=== PATIENT | male | born 1950 | race Caucasian/White ===

== ENCOUNTER → 2017-07-15 09:40 | Outpatient (CLI) | payer BC, SELFPAY ==
[2017-07-15 11:18] LABS: PSA,Total- Diagnostic < 0.01 ng/mL (0.0-4.0)
== END ==
PROVIDERS: Family Provider Family Medicine; PCP Family Medicine; Visit Provider Urology
DX: C61 Malignant neoplasm of prostate (principal)
CPT/HCPCS: 36415; 84153

== ENCOUNTER → 2017-11-10 12:38 | Outpatient (CLI) | payer BC, SELFPAY ==
--- NOTE | 2017-11-10 12:38 | DT_ITS ---
This patient was seen during an EMR downtime November 08, 2017 - November 15, 2017. This patient may have a combination of paper and electronic documentation or all paper documentation. All documentation is viewable within the e-chart portion of [employer] for each patient visit.
--- NOTE | 2017-11-10 12:50 | RAD_ITS ---
STUDY: X-RAY - THORACIC SPINE REASON FOR EXAM: Male, 67 years old. Chronic back pain. TECHNIQUE: 3 view(s) of the thoracic spine were obtained. COMPARISON: None. FINDINGS: Normal kyphosis of the thoracic spine. There is no substantial scoliosis. There is demineralization of the thoracic spine with endplate spondylosis. There is multilevel disc space narrowing of the thoracic spine. The soft tissue structures are unremarkable. RAD/Thoracic Spine 3 Views IMPRESSION: Degenerative changes. Electronically Signed: Beverly De La Torre MD at 21:42 EDT Tel , Service support ,
--- NOTE | 2017-11-10 12:50 | RAD_ITS ---
STUDY: X-RAY - LUMBAR SPINE REASON FOR EXAM: Male, 67 years old. Chronic back pain. TECHNIQUE: 3 view(s) of the lumbar spine were obtained. COMPARISON: September 26, 2013 FINDINGS: Normal lumbar lordosis. There is no substantial scoliosis. There is a normal alignment of the vertebrae. There are pedicle screws again noted at L5 and S1. The hardware is intact. There is multilevel endplate spondylosis of the lumbar vertebrae. There is multi-level degenerative disc disease with multi-level disc space narrowing. There is atherosclerotic calcification of the abdominal aorta without a demonstrated aneurysm. RAD/Lumbar Spine 2 or 3 Views IMPRESSION: Degenerative changes of the spine, as detailed above. Atherosclerosis. Electronically Signed: Beverly De La Torre MD at 18:29 EDT Tel , Service support ,
== END ==
PROVIDERS: Family Provider Family Medicine; PCP Family Medicine; Visit Provider Anesthesiology Pain Medicine
DX: M54.9 Dorsalgia, unspecified (principal); M79.606 Pain in leg, unspecified
CPT/HCPCS: 72072; 72100

== ENCOUNTER 2017-11-23 10:30 | Outpatient (RCR) | payer BC, SELFPAY ==
--- NOTE | 2017-11-19 10:29 | HP.PTEVAL_ITS ---
Patient's Visit Information MOHSEN SHEPPARD is a 67 year old M referred to Physical Therapy by Kayleen Freire with a diagnosis of LBP. Date of Evaluation: 11/19/17 Physical Therapist: Bill Stoddard PT, - Visit Plan Frequency: 2-3x /Week Duration: 4-6 Weeks Plan: B LE stretching and strengthening, core stab ex's, balance and proprio, nustep, and HEP - Subjective Subjective: Pt reports he has had LBP for greater than 30 years. Pt notes he was placed on disability due to his LBP. Pt had L/S surgery 5 years ago where they fused the R side of his LB. Pt reports his pain is constant in nature , but is worse sometimes more than others. Pt reports no T or N in LE's at this time, just a bunch of tightness. Pt reports occasional sleep diff secondary to pain. Pt reports he takes Tylenol and aleve to decrease his pain. Pt reports he has had multiple xrays which all revealed DDD. 3/10 at rest, 6/10 at worst ( driving to [place] and back) - Pain LBP Pain Intensity (Out of 10): 3 Pain Intensity Range: 6 - Objective eNeuro: B LE sensation is WNL to light touch. B pat tendon reflex= 2/3. MMT: B LE's are grossly 4/5 except R knee flex and ext 4-/5. L/S ROM: Pt is moderately limited with all ranges this date. Gait: Pt is able to ambulate greater than 1000' until feeling fatigued and needing to rest. - Goals Goal 1:: Decrease LBP x 25-50% to aid with IADL's Goal Time Frame: 4-6 Weeks Goal 2:: Increase B LE strength x 1 grade to aid with ambulation Goal Time Frame: 4-6 Weeks Goal 3:: I with HEP Goal Time Frame: 4-6 Weeks - Rehabilitation Potential Physical Therapy Diagnosis: Pt has LBP, limited ROM, and LE weakness secondary to deg changes in the L/S Rehabilitation Potential: Good - Anticipated Interventions Patient/Client Instruction: Educate patient on: Condition, Plan of Care For the Purpose of:: To improve self management Therapeutic Exercise to Include: Strength training, Endurance training, Balance training, Flexibilty training, Gait and locomotor training, Active ROM, Dynamic Lumbar Stabilization For the Purpose of:: To decrease pain, To increase ROM, To improve muscle performance and motor function Cryotherapy (ice pack, ice massage): Yes For the Purpose of:: To decrease pain Thank you for the opportunity to evaluate your patient. For Medicare and Medicare HMO plans, please review the plan of care and approve it. It will need to be FAXED BACK to us at [phone] for Medicare purposes. Please let me know if there are questions or concerns regarding this plan of care. Physician Signature: Date:
--- NOTE | 2018-02-16 07:48 | HP.PT.NRP ---
HP - Discharge Summary (1) - Patient Information MOHSEN SHEPPARD was seen in my office for initial evaluation on 11/19/17. The following Plan of Care was established for this patient: Initial Frequency: 2-3x /Week Initial Duration: 4-6 Weeks - Anticipated Interventions Patient/Client Instruction: Educate patient on: Condition, Plan of Care For the Purpose of:: To improve self management Therapeutic Exercise to Include: Strength training, Endurance training, Balance training, Flexibilty training, Gait and locomotor training, Active ROM, Dynamic Lumbar Stabilization For the Purpose of:: To decrease pain, To increase ROM, To improve muscle performance and motor function Cryotherapy (ice pack, ice massage): Yes For the Purpose of:: To decrease pain This patient was last seen in our office . Pertinent comments regarding their Physical therapy will appear below: Pt was treated for one f/u visit for his LBP on the date of 11/26/17. Pt cancelled his last 3 remaining appointments, and has not returned through todays date. Pt is therefore discontinued at this time. At this point I will be discontinuing this patient from physical therapy. I would be happy to see this patient again in the future if found appropriate by the physician. Thank you! Bill Stoddard, PT,
== END 2017-11-23 19:00 | disposition home or self-care (01) ==
LOC: PT 10:30
PROVIDERS: Family Provider Family Medicine; PCP Family Medicine; Visit Provider Anesthesiology Pain Medicine
DX: M54.9 Dorsalgia, unspecified (principal)
CPT/HCPCS: 97110; 97162

== ENCOUNTER → 2018-01-11 09:54 | Outpatient (CLI) | payer BC, SELFPAY ==
[2018-01-11 10:48] LABS: PSA,Total- Diagnostic < 0.01 ng/mL (0.0-4.0)
== END ==
PROVIDERS: Family Provider Family Medicine; PCP Family Medicine; Visit Provider Urology
DX: C61 Malignant neoplasm of prostate (principal)
CPT/HCPCS: 36415; 84153

== ENCOUNTER → 2018-07-20 09:20 | Outpatient (CLI) | payer BC, SELFPAY ==
[2018-07-20 10:46] LABS: PSA,Total- Diagnostic < 0.01 ng/mL (0.0-4.0)
== END ==
PROVIDERS: Family Provider Family Medicine; PCP Family Medicine; Referring Provider Urology; Visit Provider Urology
DX: C61 Malignant neoplasm of prostate (principal)
CPT/HCPCS: 36415; 84153

== ENCOUNTER 2018-09-22 17:53 | Emergency (ER) | payer BC, MEDICARE, SELFPAY ==
[2018-09-22 17:54] VITALS: BP 117/78; PULSE 72; RESP 16; TEMP 36.8; O2SAT 98; BMI 28.5
--- NOTE | 2018-09-22 18:08 | RAD_ITS ---
STUDY: X-RAY - LEFT ANKLE REASON FOR EXAM: Male, 68 years old. Left ankle pain TECHNIQUE: 3 view(s) of the ankle. COMPARISON: None. FINDINGS: Normal visualized distal tibia and fibula. Normal medial and lateral malleoli. Normal tibiotalar articulation and ankle mortise. Normal visualized talus and calcaneus. The visualized subtalar, talonavicular, calcaneocuboid and tarsal articulations are normal. Small well-corticated fragment at the lateral malleolus is likely from old injury. The soft tissue structures are unremarkable. RAD/Ankle min 3 Views IMPRESSION: No acute findings Electronically Signed: Chris Velazquez DO at 18:40 EDT Tel , Service support ,
--- NOTE | 2018-09-22 18:54 | ED.VISSUMM ---
- ER Visit Summary Date of Service: 09/22/18 Chief Complaint: [Pain and swelling to left ankle] History of Present Illness: The patient is a 68 M [presents to the emergency department with pain and swelling to his left ankle that started about an hour ago. Patient is not sure if he injured it in any way. Patient states that he was on a ladder today and cleaning out his gutters however the pain did not start until about 4 hours later. Patient denies any direct trauma. Denies any fevers.] Physical Examination: [Left ankle-patient does have a joint effusion noted. He is got some mild soft tissue swelling. Patient has diffuse tenderness about the ankle joint. There is no erythema or warmth. He is neurovascular intact distally. No pain at the proximal fibular head. No pain at the base of the fifth metatarsal.] Test Results: [X-rays left ankle were normal] Emergency Department Course and Treatment: [Patient given an air splint] Treatment Plan: [Patient will be given a prescription for naproxen and [place] for severe pain. Patient I suspect likely has a sprain although cannot rule out early inflammatory arthropathy such as gout.] Disposition: [Discharged home in stable condition. Patient advised to follow-up with primary care physician within next 5 to 7 days.] Impression: [Left ankle sprain] This note was generated with [employer] dictation software. It may contain incorrect words, spelling, and punctuation that were not noted in review of the chart prior to signing ED Disposition - Plan for ED Patient: Referrals: Peter Ambriz DO [Primary Care Provider] -
--- NOTE | 2018-09-22 18:56 | ED.DEP ---
ED Disposition - Plan for ED Patient: Instructions: ED Sprain Ankle W X Ray Prescriptions: Hydrocodone Bitart/Apap 5-325 [[place] 5MG-325MG] 1 tab PO Q4H PRN PRN 2 Days #10 tab PRN Reason: Pain Naproxen [Naprosyn] 500 mg PO BID PRN #20 tab Referrals: Peter Ambriz DO [Primary Care Provider] - 5-7 Days
[2018-09-22 19:09] VITALS: RESP 16
== END 2018-09-22 19:10 | disposition home or self-care (01) ==
PROVIDERS: Emergency Provider Emergency Medicine; Family Provider Family Medicine; PCP Family Medicine
DX: S93.402A Sprain of unspecified ligament of left ankle, initial encounter (principal); Z85.46 Personal history of malignant neoplasm of prostate; X58.XXXA Exposure to other specified factors, initial encounter; Y93.89 Activity, other specified; Y92.008 Other place in unspecified non-institutional (private) residence as the place of occurrence of the external cause; Y99.8 Other external cause status
CPT/HCPCS: 73610; 99283

== ENCOUNTER → 2018-10-05 | Outpatient (CLI) | payer BC, SELFPAY ==
[2018-10-05 10:09] VITALS: BMI 28.5
--- NOTE | 2018-10-05 10:52 | RAD_ITS ---
STUDY: X-RAY CHEST REASON FOR EXAM: Male, 68 years old. Left anterior pain, cough TECHNIQUE: Frontal and lateral views COMPARISON: October 26, 2016 FINDINGS: The lungs are expanded. There is a stable left pulmonary granuloma.. Normal size heart. Normal mediastinum and emely. Normal visualized pulmonary arteries. Normal visualized aortic arch and descending thoracic aorta. Normal visualized thoracic spine. Normal visualized ribs, clavicles, and shoulders. There is no demonstrated abnormality of the visualized soft tissue structures of the upper abdomen. RAD/Chest PA and Lateral IMPRESSION: Left pulmonary granuloma. No acute pulmonary pathology. Electronically Signed: Vance Connors DO at 23:49 EDT Tel [phone], Service support ,
--- NOTE | 2018-10-05 10:52 | RAD_ITS ---
HISTORY: PAIN IN LEFT ANTERIOR LATER RIBS. NO INJURY. HISTORY OF [facility] COMPARISON: 2 view chest 10/05/2018 FINDINGS: XR left ribs 4 views The left ribs are intact. No fracture or bony lesion. No pneumothorax or pleural fluid collection. Left basilar nodule which is more dense than the adjacent rib and this has been previously reported as a benign granuloma. RAD/Ribs Unil 2V No CXR IMPRESSION: Negative left ribs. No fracture or suspicious bony lesion. at 0605 Reported and signed by: Ezequiel Tobin MD Electronically Signed: Ezequiel Tobin, at 6:04 EDT Tel , Service support ,
[2018-10-05 14:33] LABS: ALB/GLOB Ratio 1.4 RATIO (0.9-2.4); AST(SGOT) 20 U/L (15-37); Alanine Aminotransfer ALT/SGPT 27 U/L (16-61); Albumin, Serum 4.5 g/dL (3.2-5.0); Alkaline Phosphatase 50 U/L (45-117); Anion Gap 5 (5-15); BUN 20 mg/dL (7-18); BUN/Creat Ratio 19.6 RATIO (10-20); Calcium,Total 8.6 mg/dL (8.5-10.1); Chloride 104 mmol/L (98-107); Cholesterol 165 mg/dL (200); Creatinine, Serum 1.02 mg/dL (0.70-1.30); EST Glomerular Filtration Rate 77 mL/min (>60); Est Glom Filt Rate - Afr Amer 93 mL/min (>60); Globulin 3.3 g/dL (2.2-4.2); Glucose 109 mg/dL (74-106); High Density Lipoprotein 39 mg/dL; Potassium 4.2 mmol/L (3.5-5.1); Protein, Total 7.8 g/dL (6.4-8.2); Sodium Level 137 mmol/L (136-145); Triglycerides 112 mg/dL; Very Low Density Lipoprotein 22 mg/dL (5-40)
[2018-10-07 12:52] LABS: PSA, Total <0.1 ng/mL (0.0-4.0)
== END | disposition home or self-care (01) ==
LOC: BIMLAB 10:33 → RAD 10:52
PROVIDERS: Family Provider Family Medicine; PCP Family Medicine; Referring Provider Family Medicine; Visit Provider Family Medicine
DX: E78.5 Hyperlipidemia, unspecified (principal); R07.9 Chest pain, unspecified; M89.8X9 Other specified disorders of bone, unspecified site; Z86.19 Personal history of other infectious and parasitic diseases; Z85.46 Personal history of malignant neoplasm of prostate
CPT/HCPCS: 36415; 71046; 71100; 80053; 80061; 82306; 84153

== ENCOUNTER → 2019-01-19 | Outpatient (CLI) | payer BC, SELFPAY ==
[2018-10-05 10:09] VITALS: BMI 28.5
[2019-01-19 16:01] LABS: PSA,Total- Diagnostic < 0.01 ng/mL (0.0-4.0)
== END | disposition home or self-care (01) ==
LOC: LAB 13:32
PROVIDERS: Family Provider Family Medicine; PCP Family Medicine; Referring Provider Urology; Visit Provider Urology
DX: C61 Malignant neoplasm of prostate (principal)
CPT/HCPCS: 36415; 84153

== ENCOUNTER → 2019-04-17 | Outpatient (CLI) | payer BC, SELFPAY ==
[2019-04-15 06:31] VITALS: BMI 28.5
--- NOTE | 2019-04-15 08:00 | LIP_PTH ---
PATIENT: MOHSEN SHEPPARD LOC: [facility] U#:[id number] AGE/SX: 69/M ROOM: RE04/17/[address]: Dr. Mohsen Mathis MD : 1950 BED: DIS: 04/17/2019 SPEC #: [id number] RECD: 04/17/19 07:41 STATUS: EDWARD ROSA #: [id number] ADILIA: 04/15/19 08:[address]: Moshen Mathis DEPT: SURGICAL PATHOLOGY RECD BY: Geovanni Choe ENTERED: 04/17/19 09:30 SP TYPE: LIPOMA OTHR DR: Dr. Peter Ambriz, DO Tissues: Soft tissues, NOS Procedures: Surgery Specimen Level III HEADER OPERATION: Excision left arm lipoma PRE-OP DIAGNOSIS: Left arm lipoma TISSUE SUBMITTED: Left arm tissue MICROSCOPIC DIAGNOSIS Left arm tissue, excision: Mature adipose tissue, consistent with lipoma with focal area of angiolipoma. SJ:gricel 04/18/19 MICROSCOPIC DESCRIPTION Slides are reviewed. GROSS DESCRIPTION Received in fixative is one container labeled with the patient's name and designated left arm lipoma. The specimen consists of an irregular piece of adipose tissue measuring 1.5 x 1.5 x 1 cm. The external surface is inked. Sections reveal yellow adipose cut surfaces without areas of hemorrhage, necrosis or cystic degeneration. The entire specimen is submitted in three cassettes. / ROGELIO:gricel 04/17/19 TC:1 CPT: 28500
== END | disposition home or self-care (01) ==
LOC: LABSPEC 09:00
PROVIDERS: Family Provider Family Medicine; PCP Family Medicine; Referring Provider Surgery; Visit Provider Surgery
DX: D17.22 Benign lipomatous neoplasm of skin and subcutaneous tissue of left arm (principal)
CPT/HCPCS: 88304

== ENCOUNTER → 2019-07-21 11:16 | Outpatient (CLI) | payer BC, SELFPAY ==
[2019-04-15 06:31] VITALS: BMI 28.5
[2019-07-21 12:44] LABS: PSA,Total- Diagnostic < 0.01 ng/mL (0.0-4.0)
== END ==
PROVIDERS: PCP Family Medicine; Referring Provider Urology; Visit Provider Urology
DX: C61 Malignant neoplasm of prostate (principal)
CPT/HCPCS: 36415; 84153

== ENCOUNTER → 2020-01-25 11:06 | Outpatient (CLI) | payer BC, SELFPAY ==
[2019-04-15 06:31] VITALS: BMI 28.5
[2020-01-25 13:10] LABS: PSA,Total- Diagnostic < 0.01 ng/mL (0.0-4.0)
== END ==
PROVIDERS: PCP Family Medicine; Referring Provider Urology; Visit Provider Urology
DX: C61 Malignant neoplasm of prostate (principal)
CPT/HCPCS: 36415; 84153

== ENCOUNTER → 2020-07-30 11:03 | Outpatient (CLI) | payer BC, SELFPAY ==
[2019-04-15 06:31] VITALS: BMI 28.5
[2020-07-30 12:19] LABS: PSA,Total- Diagnostic < 0.01 ng/mL (0.0-4.0)
== END ==
PROVIDERS: PCP Family Medicine; Referring Provider Urology; Visit Provider Urology
DX: C61 Malignant neoplasm of prostate (principal)
CPT/HCPCS: 36415; 84153

== ENCOUNTER → 2022-11-28 | Outpatient (CLI) | payer MEDICARE, SELFPAY ==
[2022-11-28 09:41] LABS: Hematocrit 47.1 % (40-54); Hemoglobin 15.9 g/dL (13.0-16.5); Mean Corp Hgb Conc 33.8 g/dL (32-36); Mean Corpuscular Hgb 30.8 pg (27.0-32.0); Mean Corpuscular Volume 91.3 fL (80-94); Mean Platelet Vol. 10.9 fl (6.2-12.0); Platelet Count 216 K/mm3 (150-450); RBC Distribution Width CV 13.2 % (11.6-14.6); RBC Distribution Width SD 44.8 fl (35.1-43.9); Red Blood Count 5.16 M/mm3 (4.6-6.2); White Blood Count 3.9 K/mm3 (4.4-11.0)
== END | disposition home or self-care (01) ==
LOC: MTLAB 09:09 → LAB 09:10
PROVIDERS: PCP Student in an Organized Health Care Education/Training Program; Referring Provider Student in an Organized Health Care Education/Training Program; Visit Provider Student in an Organized Health Care Education/Training Program
DX: D72.819 Decreased white blood cell count, unspecified (principal)
CPT/HCPCS: 36415; 85027

== ENCOUNTER → 2023-01-01 | Outpatient (CLI) | payer MEDICARE, SELFPAY ==
[2023-01-01 08:57] LABS: Hematocrit 47.8 % (40-54); Hemoglobin 15.8 g/dL (13.0-16.5); Mean Corp Hgb Conc 33.1 g/dL (32-36); Mean Corpuscular Volume 90.9 fL (80-94); Mean Platelet Vol. 10.7 fl (6.2-12.0); Platelet Count 218 K/mm3 (150-450); RBC Distribution Width CV 13.1 % (11.6-14.6); RBC Distribution Width SD 43.8 fl (35.1-43.9); Red Blood Count 5.26 M/mm3 (4.6-6.2)
[2023-01-01 09:27] LABS: Rheumatoid Factor < 10.0 IU/mL (<15)
[2023-01-02 13:07] LABS: ANTINUCLEAR ANTIBODIES DIRECT Negative (Negative)
== END | disposition home or self-care (01) ==
LOC: LAB 08:14
PROVIDERS: PCP Student in an Organized Health Care Education/Training Program; Referring Provider Specialist; Visit Provider Student in an Organized Health Care Education/Training Program
DX: D72.819 Decreased white blood cell count, unspecified (principal); R42 Dizziness and giddiness; K21.9 Gastro-esophageal reflux disease without esophagitis
CPT/HCPCS: 36415; 85027; 86038; 86431

== ENCOUNTER → 2024-02-01 | Outpatient (CLI) | payer MEDICARE, SELFPAY ==
--- NOTE | 2024-02-01 17:13 | RAD_ITS ---
INDICATION: DDD EXAMINATION/TECHNIQUE: X-RAY - XR Spine Lumbar 2 or 3 Views COMPARISON: 11/10/2017 FINDINGS: VERTEBRAE: Vertebral body height is maintained at, there are postoperative changes of pedicle screw posterior fixation at L5-S1. There is a mild dextroscoliotic curvature. No fractures or dislocation however noted. No destructive bony process. Diffuse facet hypertrophy throughout the visualized lumbar spine. DISCS: Disc space narrowing at multiple levels, marginal osteophyte formation is noted. No fracture or dislocation noted. INCLUDED ABDOMEN: Included bowel gas pattern is non-obstructive. RAD/Lumbar Spine 2 or 3 Views IMPRESSION: 1. Postoperative changes of pedicle screw posterior fixation at L5-S1. 2. No fractures destructive bony process or malalignment. There is mild dextroscoliotic curvature. 3. Multilevel chronic disc changes with mild disc space narrowing endplate sclerosis and marginal osteophyte formation Electronically Signed: Kirby Hanley MD at 22:25 EDT ,
== END | disposition home or self-care (01) ==
PROVIDERS: PCP Student in an Organized Health Care Education/Training Program; Referring Provider Anesthesiology Pain Medicine; Visit Provider Anesthesiology Pain Medicine
DX: M51.36 Other intervertebral disc degeneration, lumbar region (principal)
CPT/HCPCS: 72100

== ENCOUNTER → 2024-03-22 | Outpatient (CLI) | payer MEDICARE, SELFPAY ==
[2024-03-22 11:07] LABS: Hematocrit 46.2 % (40-54); Hemoglobin 15.6 g/dL (13.0-16.5); Mean Corp Hgb Conc 33.8 g/dL (32-36); Mean Corpuscular Hgb 30.7 pg (27.0-32.0); Mean Corpuscular Volume 90.9 fL (80-94); Mean Platelet Vol. 10.8 fl (6.2-12.0); Platelet Count 235 K/mm3 (150-450); RBC Distribution Width CV 13.2 % (11.6-14.6); RBC Distribution Width SD 44.7 fl (35.1-43.9); Red Blood Count 5.08 M/mm3 (4.6-6.2); White Blood Count 5.4 K/mm3 (4.4-11.0)
[2024-03-22 11:38] LABS: ALB/GLOB Ratio 1.2 RATIO (0.9-2.4); AST(SGOT) 18 U/L (15-37); Alanine Aminotransfer ALT/SGPT 21 U/L (16-61); Alkaline Phosphatase 51 U/L (45-117); Anion Gap 5 (5-15); BUN 11 mg/dL (7-18); BUN/Creat Ratio 11.9 RATIO (10-20); Calcium,Total 8.8 mg/dL (8.5-10.1); Chloride 108 mmol/L (98-107); Cholesterol 170 mg/dL (200); Creatinine, Serum 0.92 mg/dL (0.70-1.30); EST Glomerular Filtration Rate 85 mL/min (>60); Est Glom Filt Rate - Afr Amer 103 mL/min (>60); Globulin 3.3 g/dL (2.2-4.2); Glucose 102 mg/dL (74-106); High Density Lipoprotein 45 mg/dL; PSA,Total - Annual Screen 0.04 ng/mL (0.00-4.00); Potassium 4.2 mmol/L (3.5-5.1); Protein, Total 7.3 g/dL (6.4-8.2); Sodium Level 140 mmol/L (136-145); Triglycerides 75 mg/dL; Very Low Density Lipoprotein 15 mg/dL (5-40)
== END | disposition home or self-care (01) ==
LOC: LAB 10:31
PROVIDERS: PCP Student in an Organized Health Care Education/Training Program; Referring Provider Student in an Organized Health Care Education/Training Program; Visit Provider Student in an Organized Health Care Education/Training Program
DX: Z00.00 Encounter for general adult medical examination without abnormal findings (principal); Z72.89 Other problems related to lifestyle; E78.00 Pure hypercholesterolemia, unspecified; R51.9 Headache, unspecified; R19.09 Other intra-abdominal and pelvic swelling, mass and lump; Z85.46 Personal history of malignant neoplasm of prostate; Z12.5 Encounter for screening for malignant neoplasm of prostate; Z13.220 Encounter for screening for lipoid disorders
CPT/HCPCS: 36415; 80053; 80061; 84153; 85027; G0103

== ENCOUNTER → 2024-09-20 | Outpatient (CLI) | payer MEDICARE, SELFPAY ==
--- NOTE | 2024-09-20 11:10 | RAD_ITS ---
PROCEDURE: CERV SPINE 4 OR 5 VIEWS 09/20/2024 REASON FOR EXAM: BURNING NECK PAIN RADIATING TO SHOULDER/NUMBNESS L ARM TECHNIQUE: 5 views of the cervical spine were obtained including oblique views. COMPARISON: None FINDINGS: Vertebrae: Anterior spondylosis. disc spaces: Multilevel disc space narrowing. Obliques: Bilateral neural foraminal stenosis. Alignment: Loss of the normal cervical lordosis. soft tissues: Unremarkable RAD/Cerv Spine 4 or 5 Views IMPRESSION: Multilevel disc space narrowing and spondylosis. Bilateral neural foraminal stenosis. Loss of the normal cervical lordosis most likely secondary to muscle spasm. Disclaimer: Reading Location: [place] [id number]
[2024-09-20 13:06] LABS: Hematocrit 47.8 % (40-54); Hemoglobin 16.6 g/dL (13.0-16.5); Mean Corp Hgb Conc 34.7 g/dL (32-36); Mean Corpuscular Hgb 30.8 pg (27.0-32.0); Mean Corpuscular Volume 88.7 fL (80-94); Mean Platelet Vol. 11.3 fl (6.2-12.0); Platelet Count 224 K/mm3 (150-450); RBC Distribution Width CV 13.5 % (11.6-14.6); Red Blood Count 5.39 M/mm3 (4.6-6.2); White Blood Count 5.8 K/mm3 (4.4-11.0)
[2024-09-20 13:50] LABS: ALB/GLOB Ratio 1.6 RATIO (0.9-2.4); AST(SGOT) 17 U/L (<=37); Alanine Aminotransfer ALT/SGPT 14 U/L (<=46); Albumin, Serum 4.6 g/dL (3.4-4.8); Alkaline Phosphatase 48 U/L (40-129); Anion Gap 13 (5-15); BUN 16 mg/dL (4-19); BUN/Creat Ratio 16.9 RATIO (10-20); Calcium,Total 9.2 mg/dL (7.6-11.0); Carbon Dioxide 24.1 mmol/L (21.0-32.0); Chloride 101 mmol/L (98-108); Cholesterol 168 mg/dL (<=200); Creatinine, Serum 0.96 mg/dL (0.70-1.20); EST Glomerular Filtration Rate 83 (>60); Globulin 2.8 g/dL (2.2-4.2); Glucose 104 mg/dL (70-99); High Density Lipoprotein 45 mg/dL; Low Density Lipoprotein Calc. 107 mg/dL; PSA,Total- Diagnostic 0.07 ng/mL (0.00-4.00); Potassium 3.9 mmol/L (3.3-5.1); Protein, Total 7.4 g/dL (5.9-8.4); Sodium Level 138 mmol/L (133-145); Total Bilirubin 0.64 mg/dL (0.00-1.30); Triglycerides 77 mg/dL; Very Low Density Lipoprotein 15 mg/dL (5-40); Vitamin B12 762 pg/mL (180-914); cholesterol:hdl ratio screen 3.73
[2024-09-22 08:08] LABS: Rubeola IgG Ab > 300.0 AU/mL (Immune >16.4)
== END | disposition home or self-care (01) ==
LOC: LAB 10:38
PROVIDERS: PCP Student in an Organized Health Care Education/Training Program; Referring Provider Student in an Organized Health Care Education/Training Program; Visit Provider Student in an Organized Health Care Education/Training Program
DX: Z00.00 Encounter for general adult medical examination without abnormal findings (principal); M54.2 Cervicalgia; R20.0 Anesthesia of skin; Z13.220 Encounter for screening for lipoid disorders; E78.00 Pure hypercholesterolemia, unspecified; Z12.5 Encounter for screening for malignant neoplasm of prostate; Z85.46 Personal history of malignant neoplasm of prostate; Z72.89 Other problems related to lifestyle; R51.9 Headache, unspecified; R19.09 Other intra-abdominal and pelvic swelling, mass and lump; E53.8 Deficiency of other specified B group vitamins
CPT/HCPCS: 36415; 72050; 80053; 80061; 82607; 84153; 85027; 86765

== ENCOUNTER → 2025-03-28 | Outpatient (CLI) | payer MEDICARE, SELFPAY ==
[2025-03-28 09:59] LABS: Hematocrit 47.0 % (40-54); Hemoglobin 16.0 g/dL (13.0-16.5); Mean Corp Hgb Conc 34.0 g/dL (32-36); Mean Corpuscular Volume 88.5 fL (80-94); Mean Platelet Vol. 10.5 fl (6.2-12.0); Platelet Count 214 K/mm3 (150-450); RBC Distribution Width CV 12.9 % (11.6-14.6); RBC Distribution Width SD 41.9 fl (35.1-43.9); Red Blood Count 5.31 M/mm3 (4.6-6.2); White Blood Count 4.0 K/mm3 (4.4-11.0)
[2025-03-28 10:49] LABS: Anion Gap 12 (5-15); BUN 12 mg/dL (4-19); BUN/Creat Ratio 10.6 RATIO (10-20); Calcium,Total 9.0 mg/dL (7.6-11.0); Carbon Dioxide 24.2 mmol/L (21.0-32.0); Chloride 103 mmol/L (98-108); Glucose 105 mg/dL (70-99); PSA,Total - Annual Screen 0.12 ng/mL (0.02-4.00); Potassium 4.4 mmol/L (3.3-5.1); Vitamin D,25 Hydroxy 76.3 ng/mL (30-100)
== END | disposition home or self-care (01) ==
LOC: LAB 09:33
PROVIDERS: PCP Student in an Organized Health Care Education/Training Program; Referring Provider Student in an Organized Health Care Education/Training Program; Visit Provider Student in an Organized Health Care Education/Training Program
DX: E55.9 Vitamin D deficiency, unspecified (principal); R73.03 Prediabetes; D75.1 Secondary polycythemia; Z12.5 Encounter for screening for malignant neoplasm of prostate; R35.1 Nocturia; Z85.46 Personal history of malignant neoplasm of prostate
CPT/HCPCS: 36415; 80048; 82306; 83036; 84153; 85027; G0103